=== PATIENT | male | born 1970 | race Caucasian/White ===

== ENCOUNTER 2021-09-14 12:57 | Outpatient (CLI) | payer BC ==
[~2021-09-14] VITALS: Ht 180.3 cm; Wt 113.4 kg
[2021-09-14] MEDS ORDERED: LISI40TA9 PO (17:56)
[2021-09-14] MEDS ORDERED: DULO20CA PO (17:56)
[2021-09-14] MEDS ORDERED: OMEP40CA6 PO (17:56)
[2021-09-14] MEDS ORDERED: SIMV40TA25 PO (17:56)
== END 2021-09-14 18:15 | disposition home or self-care (01) ==
LOC: PREOP 12:57
PROVIDERS: ATTEND Internal Medicine
DX: Z01.818 Encounter for other preprocedural examination (principal)

== ENCOUNTER → 2021-09-19 | Outpatient (CLI) | payer BC ==
[~2021-09-19] MED LIST: DULO20CA PO; LISI40TA9 PO; OMEP40CA6 PO; SIMV40TA25 PO
--- NOTE | 2021-09-19 11:52 | Diagnostic Imaging Report ---
PROCEDURE: US Hepatic (Liver). TECHNIQUE: Multiple real-time grayscale images were obtained over the right upper quadrant in various projections. INDICATION: Elevated liver enzyme. FINDINGS: Liver parenchyma is slightly echogenic. No focal liver lesion. Liver measures 16 cm. Bile ducts are not dilated. Common duct measures 4 mm. Gallbladder shows no gallstones. Gallbladder wall is upper limits of normal in thickness at 3 mm. There is no pericholecystic fluid. Gallbladder is not overly distended. Pancreas is obscured by bowel gas. Aorta measures 2 cm. Portal vein shows normal flow with Doppler sampling. Right kidney measures 10.5 x 7 x 6.6 cm. There is a anechoic cyst measuring 2 x 2.3 x 1.7 cm. There is no ascites. Negative Alvarado sign. IMPRESSION: 1. The findings are consistent with some fatty change of the liver. 2. Simple appearing cyst within the right kidney. Dictated by: Dictated on workstation # [id number]
== END ==
LOC: RAD 09:30
PROVIDERS: ATTEND Family Medicine
DX: R94.5 Abnormal results of liver function studies (principal)
CPT/HCPCS: 76705

== ENCOUNTER 2021-09-22 10:02 | Day surgery (SDC) | payer BC ==
--- NOTE | 2021-09-15 08:32 | HISTORY AND PHYSICAL ---
DATE OF SERVICE: PANENDOSCOPY HISTORY AND PHYSICAL HISTORY OF PRESENT ILLNESS: The patient is a 51-year-old white male being referred by Dr. Miranda for screening colonoscopy and diagnostic EGD. He reports that he has been having some epigastric discomfort and was noted to have some elevation in liver function studies. He reports he drinks about 6 beers per day and was on a statin medication for cholesterol, which he discontinued. He is in the process of being switched from Cymbalta to Contrave to just to try to help out with reduction in alcohol intake as well as weight loss. He denies dysphagia and has noted no melena or bright red blood per rectum. He does not feel that his pain is aggravated by alcohol or food. It does not wake him up at night and has a dull, non-colicky quality per his report. It is worse in the morning, gets a little bit better as the day goes on. He has no past history of known peptic ulcer disease, currently he is not taking any antiinflammatory/nonsteroidal medication or aspirin. PAST MEDICAL HISTORY: Significant for hypertension and hyperlipidemia as well as class 2 obesity, BMI 35 to 39.9. PAST SURGICAL HISTORY: Noncontributory. SOCIAL HISTORY: He is employed. No past smoking history and is averaging about 6 beers most days of the week in regards to alcohol consumption. He is with two children. FAMILY HISTORY: His father is living at the age of 79 with a history of coronary artery disease. Mother living at age of 78 with no health problems. One brother 54 years of age, has hypertension. REVIEW OF SYSTEMS: CONSTITUTIONAL: Denies night sweats, chills, fever, change in weight. GASTROINTESTINAL: As noted in the HPI. PULMONARY: Denies cough, wheezing or shortness of breath. CARDIOVASCULAR: Denies orthopnea, PND, pedal edema or chest pain. PHYSICAL EXAMINATION: GENERAL: Reveals pleasant overweight white male in no acute distress. VITAL SIGNS: Weight 250 pounds, blood pressure 136/90. HEENT: Unremarkable. Sclerae nonicteric. CHEST: Clear to auscultation. CARDIOVASCULAR: Reveals regular rate and rhythm without murmur, S3 or S4. ABDOMEN: Soft, supple without mass or organomegaly. He does have some mild epigastric discomfort to palpation without rebound or guarding. Alvarado sign is negative. EXTREMITIES: Reveal no cyanosis, clubbing or edema. There is no evidence for abdominal distention. ASSESSMENT AND PLAN: The patient is undergoing diagnostic EGD due to history of epigastric pain with excessive alcohol intake. Discussed moderation was considered to be a maximum of 2 beers per day, strongly recommended that he cut down on alcohol intake. He is being set up for his first screening colonoscopy, deemed to be of average risk. We also discussed negative impact that excessive alcohol was having on his weight as well. I thank you for the referral of this pleasant gentleman. Job ID: [id number] DocumentID: [id number] Dictated Date: 09/14/2021 11:42:11 Snowboarding Instructor Date: 09/14/2021 11:59:01 Dictated By: LUIS ALBERTO AUGUSTIN MD
[~2021-09-22] VITALS: Ht 180.3 cm; Wt 113.4 kg
[2021-09-22] MEDS ORDERED: LACTATED RINGERS 1,000 ML IV STA (10:09)
[2021-09-22] MEDS ORDERED: HURRICAINE EXT TUBE (BENZOCAINE) XX PRN (10:15)
[2021-09-22 10:36] VITALS: BP 143/97
--- NOTE | 2021-09-22 11:08 | Pre-Op Note & Conscious Sedat ---
Pre-Operative Progress Note H&P Reviewed The H&P was reviewed, patient examined and no changes noted. Date H&P Reviewed: September 22, 2021 Time H&P Reviewed: 11:07 Conscious Sedation Pre-Proced ASA Score 3 For ASA 3 and 4: Consider anesthesia and medical clearance. Also, for patients with a history of failed moderate sedation consider anesthesia. Airway Lungs Heart ASA score ASA 1: a normal healthy patient ASA 2: a patient with a mild systemic disease (mid diabetes, controlled hypertension, obesity ASA 3: a patient with a severe systemic disease that limits activity (angina, COPD, prior Myocardial infarction) ASA 4: a patient with an incapacitating disease that is a constant threat to life (CHF, renal failure) ASA 5: a moribund patient not expected to survive 24 hrs. (ruptured aneurysm) ASA 6: a declared brain- patient whose organs are being harvested. For emergent operations, add the letter E after the classification Mallampati Classification Grade 2 Sedation Plan Analgesia, Amnesia, Plan communicated to team members, Discussed options with patient/fam, Discussed risks with patient/fam The patient is an appropriate candidate to undergo the planned procedure, sedation, and anesthesia. The patient immediately re-assessed prior to indication. LUIS ALBERTO AUGUSTIN MD September 22, 2021 11:07
[2021-09-22] MEDS ORDERED: PROPOFOL INJECTION 50 ML IV ONE (11:40)
[2021-09-22] MEDS ORDERED: MIDAZOLAM 2 MG/2 ML (VERSED) VIAL ONE (11:40)
[2021-09-22] MEDS ORDERED: proPOfol 200 MG/20 ML (DIPRIVAN) VIAL IV ONE (12:12)
[2021-09-22 12:20] VITALS: BP 131/78
[2021-09-22 12:25] VITALS: BP 121/76
[2021-09-22 12:55] VITALS: BP 135/88
[2021-09-22 13:00] VITALS: BP 135/88
--- NOTE | 2021-09-22 13:12 | Anesthesia-General Post-Op ---
MAC Patient Condition Mental Status/LOC: Same as Preop Cardiovascular: Satisfactory Nausea/Vomiting: Absent Respiratory: Satisfactory Pain: Controlled Complications: Absent Post Op Complications Complications None Follow Up Care/Instructions Patient Instructions None needed. Anesthesiology Discharge Order Discharge Order Patient is doing well, no complaints, stable vital signs, no apparent adverse anesthesia problems. No complications reported per nursing. CELIA LUND CRNA September 22, 2021 13:12
--- NOTE | 2021-09-23 00:41 | OPERATIVE REPORT ---
DATE OF SERVICE: PANENDOSCOPY SUMMARY INDICATION FOR THE PROCEDURE: Epigastric pain and screening colonoscopy. The patient was placed in the left lateral decubitus position. The endoscope was inserted in the oral cavity and under direct visualization, esophagus was intubated. The endoscope was passed down the esophagus through stomach into the second portion of the duodenum. Careful inspection was made as the endoscope was withdrawn. FINDINGS: The posterior pharynx, epiglottis, arytenoid aperture and true and false vocal folds were unremarkable to visual inspection. The proximal, mid and distal esophagus were unremarkable. There is minimal amount of erythema without ulceration, rings, webs or strictures noted at the GE junction. A biopsy was obtained and submitted for histopathology. There was no evidence for significant hiatal hernia formation. The cardia, fundus, antrum, pylorus, pyloric channel, duodenal bulb and second portion of duodenum were unremarkable. ASSESSMENT: Findings suggest nonerosive esophagitis. Biopsy was obtained from the GE junction with an otherwise unremarkable EGD. We then proceeded with colonoscopy. Prior to undergoing colonoscopy, digital rectal evaluation was performed. Anal sphincter tone was normal and the perianal reflexes intact. The prostate is normal in size and anodular on digital inspection. No abnormalities were noted on digital inspection of anal canal or distal rectal vault. The colonoscope was then inserted into the rectum and under direct visualization advanced to cecum. The cecum was identified by identification of ileocecal valve and cecal strap. Photographic documentation was obtained. Quality of prep was good. FINDINGS: There was no evidence of internal or external hemorrhoids. There was some mild dilatation of the venous plexus of the rectum with no other rectal abnormalities being appreciated. Photograph was obtained. Mild diverticular disease noted throughout the sigmoid colon was present without evidence for diverticulitis. The descending colon, splenic flexure was unremarkable. Present in the distal transverse colon was an inflammatory area, for which an inflammatory polyp could not be ruled out. Biopsy and cauterization was performed. There was no significant blood loss. This was a focal area just measuring 5 x 6 mm in size. The remainder of the transverse colon was unremarkable as was the hepatic flexure, ascending colon and cecum. ASSESSMENT: 1. Mild diverticular disease confined to the sigmoid colon was present without evidence for diverticulitis. 2. One questionable inflammatory polyp was biopsied and ablated noted in the distal transverse colon. The prostate was unremarkable on digital inspection. We would advise consideration for repeat surveillance colonoscopy in 10 years provided there are no surprises on histopathology report. I did discuss that epigastric pain very well may be due to reflux changes as well as alcohol-related gastritis or exacerbation of reflux and the need for alcohol cessation or at minimum, moderate alcohol intake defined as no more than 2 beers per day. I thank you for the referral of this pleasant gentleman. Job ID: [id number] DocumentID: [id number] Dictated Date: 09/22/2021 12:22:08 Interventional Radiologist Date: 09/22/2021 22:15:20 Dictated By: LUIS ALBERTO AUGUSTIN MD
== END 2021-09-22 13:15 | disposition home or self-care (01) ==
LOC: SDC 10:02 → ENDO 13:15
PROVIDERS: ATTEND Internal Medicine
DX: Z12.11 Encounter for screening for malignant neoplasm of colon (principal); K20.90 Esophagitis, unspecified without bleeding; K63.5 Polyp of colon; K57.30 Diverticulosis of large intestine without perforation or abscess without bleeding; E66.9 Obesity, unspecified; Z68.35 Body mass index [BMI] 35.0-35.9, adult
CPT/HCPCS: 88305

== ENCOUNTER → 2022-04-17 | Outpatient (CLI) | payer BC ==
--- NOTE | 2022-04-17 17:14 | Diagnostic Imaging Report ---
CLINICAL INDICATION: Patient with medial right orbital abscess evaluation. This was removed from the superficial aspect and needing further evaluation. Patient states second time removed and keeps coming back. Area is located between right orbit and nasion. EXAM: Axial CT scan of the maxillofacial structures without IV contrast. Coronal and sagittal reformations were performed. Auto Exposure Controls were utilized during the CT exam to meet ALARA standards for radiation dose reduction. COMPARISON: None. FINDINGS: PARANASAL SINUSES: FRONTAL: Unremarkable. ETHMOID: Unremarkable. MAXILLARY: Unremarkable. SPHENOID: Unremarkable. OTHER PARANASAL SINUS FINDINGS: None. NASAL SEPTUM: Relatively midline. No significant bony spurs. VISUALIZED TEMPORAL BONE STRUCTURES: Unremarkable. BONY STRUCTURES: Unremarkable. EXTRACRANIAL SOFT TISSUE/ ORBITS: There is 2.3 cm x 1.7 cm in AP x transverse dimension amorphous area of prominence, which may represent a mass or swelling. This area is located in the extracranial soft tissue near the preseptal medial right periorbital/nasal region. This area may be associated with the nasolacrimal duct as the upper aspect of the nasolacrimal duct extends toward this area of amorphous mass-like density. There is fat stranding adjacent to the area and mild soft tissue swelling involving the inferior and medial right periorbital fat stranding. There is a small area of air within this area of consolidation. All of the swelling is preseptal. There are no bony erosions. The remainder of the extracranial soft tissue structures are unremarkable. Small bilateral torus maxillaris externa are noted. IMPRESSION: 1: There is an amorphous prominent area of mass-like prominence and/or soft tissue swelling in the preseptal medial right periorbital/nasal region. There is concern that this area is associated with the upper aspect of the nasolacrimal duct. There are no adjacent bony erosive changes. These findings may be related to infectious or inflammatory process. An abscess cannot be excluded. There is no retrobulbar abnormality. 2: Paranasal sinuses are clear. Dictated by: Dictated on workstation # [id number]
== END ==
LOC: RAD 16:14
PROVIDERS: ATTEND Specialist
DX: G06.0 Intracranial abscess and granuloma (principal)
CPT/HCPCS: 70486